=== PATIENT | female | born 1955 | race Caucasian/White ===

== ENCOUNTER → 2016-11-12 | Outpatient (CLI) | payer BC, MEDICARE, OTHER ==
[2016-09-30 07:00] VITALS: BP 174/87
[~2016-11-12] MED LIST: AZIT250T6 PO; DEXT236S PO; FURO40TA4 PO; METH8TAB3 PO; OSEL75CA PO; POTA20TA12 PO; PROAIR HFA8.5 GM INH
--- NOTE | 2016-11-12 09:21 | CARD ---
APPROVED REPORT EXAM: Two-dimensional and M-mode echocardiogram with Doppler and color Doppler. Other Information Quality : Average Rhythm : NSR INDICATION Murmur 2D DIMENSIONS RVDd2.7 (2.9-3.5cm)Left Atrium(2D)2.9 (1.6-4.0cm) IVSd0.9 (0.7-1.1cm)Aortic Root(2D)3.0 (2.0-3.7cm) LVDd3.6 (3.9-5.9cm)LVOT Diameter2.0 (1.8-2.4cm) PWd0.9 (0.7-1.1cm)LVDs2.1 (2.5-4.0cm) FS (%) 31.2 %SV39.9 ml LVEF(%)63.0 (>50%) Aortic Valve AoV Peak Matias.125.5cm/sAoV VTI23.6cm AO Peak GR.6.3mmHgLVOT Peak Matias.96.4cm/s LVOT VTI 21.78cmAO Mean GR.3mmHg DUSTY (VMAX)2.86zk4CGR (VTI)2.94cm2 AI P 1/2 Vwmz292ur Mitral Valve MV E Viktznnq34.5cm/sMV DECEL AZKA646wk MV A Ftcwinqs218.5cm/sMV E Mean Gr.3mmHg MV LXT60quV/A Ratio0.7 MV A Cxifootm563oxSRJ (PHT)2.98cm2 TDI E/Lateral E'10.5E/Medial E'16.8 Pulmonary Valve PV Peak Ujbtymtu91.3cm/sPV Peak Grad.3mmHg RVOT VTI11.8cm Tricuspid Valve TR P. Lgzawfdr150by/sRAP CBNATNJU7nnSo TR Peak Gr.48lkLpCOSN62kzLl Pulmonary Vein S1 Lheebfdn17.1cm/sD2 Qdugbvor48.6cm/s LEFT VENTRICLE The left ventricle is normal size. There is normal left ventricular wall thickness. Left ventricle sy stolic function is normal. The Ejection Fraction is 60-65%. There is normal LV segmental wall motion. Tissue Doppler imaging reveals mild left ventricular diastolic dysfunction. RIGHT VENTRICLE The right ventricle is normal size. The right ventricular systolic function is normal. ATRIA The left atrium size is normal. The right atrium size is normal. The interatrial septum is intact wit h no evidence for an atrial septal defect or patent foramen ovale as noted on 2-D or Doppler imaging. AORTIC VALVE The aortic valve is normal in structure The aortic valve is trileaflet.. Doppler and Color Flow revea led mild aortic regurgitation. There is no significant aortic valvular stenosis. MITRAL VALVE The mitral valve is normal in structure. There is no mitral valve stenosis. Doppler and Color Flow re vealed mild mitral regurgitation. TRICUSPID VALVE The tricuspid valve is normal in structure and function. Doppler and Color Flow revealed mild tricusp id regurgitation. The PA pressure was estimated at 27 mmHg. There is no tricuspid valve stenosis. PULMONIC VALVE The pulmonic valve is not well visualized. Doppler and Color Flow revealed no pulmonic valvular regur gitation. There is no pulmonic valvular stenosis. GREAT VESSELS The aortic root is normal in size. Normal pulmonary venous flow (Doppler). The IVC is normal in size and collapses >50% with inspiration. PERICARDIAL EFFUSION There is no evidence of significant pericardial effusion. Critical Notification Critical Value: No <Conclusion> Left ventricle systolic function is normal. The Ejection Fraction is 60-65%. There is normal LV segmental wall motion.
== END | disposition home or self-care (01) ==
LOC: ECHO 07:51
PROVIDERS: ATTEND Internal Medicine Cardiovascular Disease
DX: R01.1 Cardiac murmur, unspecified (principal)
CPT/HCPCS: 93306

== ENCOUNTER → 2018-11-03 | Outpatient (CLI) | payer BC, MEDICARE, OTHER ==
[2016-09-30 07:00] VITALS: BP 174/87
[~2018-11-03] MED LIST changes: +ALBU2.5V8 INH; -PROAIR HFA8.5 GM INH; +REGADENOSON 0.4 MG/5 ML DISP.SYRIN. IV ONE
[2018-11-03] MEDS: REGADENOSON 0.4 MG/5 ML DISP.SYRIN. IV ONE (10:36)
--- NOTE | 2018-11-03 12:20 | RAD ---
MR#: [id number] Date of Study: 11/03/2018 Ordering Physician: AURELIO MCINTYRE, Referring Physician: JANEY PARK Tech: RT Tuyet (R) (N) APPROVED REPORT Test Type: Pharmacological Stress Nurse/Tech: Malena Eaton R.N./Faby Gallagher RN Test Indications: Pre-op Cardiac History: Family history, [place] 2008 Medications: See Electronic Medical Record Medical History: See Electronic Medical Record Resting ECG: SR Resting Heart Rate: 66 bpm Resting Blood Pressure: 167/85mmHg Pretest Chest Pain: No chest pain Nurse/Tech Notes S1 S2, Lungs CTA Consent: The procedure was explained to the patient in lay terms. Informed consent was witnessed. Kolby eout was entered into [employer]. History and Stress Test performed by RT Katarzyna (R) (N) Pharm. Details Pharmacologic stress testing was performed using 0.4mg per 5ml of regadenoson given intravenously ove r 7-10 seconds. Stress Symptoms Dizziness, headache POST EXERCISE Reason for Termination: Infusion complete Max HR: 105 bpm Max Blood Pressure: 181/77mmHg Blood Pressure response to exercise: Normal blood pressure response during stress. Heart Rate response to exercise: WNL Chest Pain: No. Arrhythmia: No. ST Change: No. INTERPRETATION Stress EKG Conclusion: Baseline EKG showed sinus rhythm with incomplete RBBB. No ischemic changes at peak stress. No arrhythmias. Imaging Protocol IMAGE PROTOCOL: Rest Tc-99m/stress Tc-99m 1 day Rest: Stress: Viability: Radiopharm.Tc99m DmhvfniyvJk86e Sestamibi Lmpd46nEq 33mCi Duration 13min. 13min. Img Date 11/03/2018 11/03/2018 Inj-Img Lzyz64bzk. 60min. Rest Admin Site:IV - Left AntecubitalAdministrator:RT Tuyet (R)(N) Stress Admin Site: IV - Left AntecubitalAdministrator: RT Kelly Colón)(N) STRESS DATA End Diast. Vol.38.0mlLVEDV index BSA22.0ml End Syst. Vol.6.0mlLVESV index BSA4.0ml Myocardial Mass84.0gEject. Lsygswre08.0% Stress Scores Regional WT0.00Summed WT5.00 Regional WM0.00Summed WM0.00 Study quality was good. Left Ventricular size was Normal at Rest and Stress. Lung uptake was Normal. Left Ventricular ejection fraction is 84%. The rest and stress images show normal perfusion, normal contraction and thickening. LV Perf. Quant 17 Seg. SSS8.00 17 Seg. SRS3.00 17 Seg. SDS5.00 Stress Defect Extent (% LAD)0.00Rest Defect Extent (% LAD)0.00Rev. Defect Extent (% LAD)0.00 Stress Defect Extent (% LCX) 77.50Rest Defect Extent (% LCX)27.50Rev. Defect Extent (% LCX)7.50 Stress Defect Extent (% RCA)0.00Rest Defect Extent (% RCA)0.00Rev. Defect Extent (% RCA)0.00 Stress Defect Extent (% KIKI)13.90Rest Defect Extent (% KIKI)4.80Rev. Defect Extent (% KIKI)1.30 Conclusion 1. Regadenoson cardioisotope stress test did not show any evidence of ischemia or infarct. 2. Normal left ventricular systolic function with ejection fraction calculated at 84%. 3. Low risk for cardiac events. Signed by : Shaji Laurent, Electronically Approved : 11/03/2018 12:18:00
== END | disposition home or self-care (01) ==
LOC: NM 08:28
PROVIDERS: ATTEND Internal Medicine Cardiovascular Disease
DX: R07.9 Chest pain, unspecified (principal); Z82.49 Family history of ischemic heart disease and other diseases of the circulatory system
CPT/HCPCS: 78452; 93017; 96374; A9500; J2785